=== PATIENT | female | born 1950 | race African-American/Black ===

== ENCOUNTER 2021-04-10 12:37 | Inpatient (IN) | payer MEDICARE, MEDICAID ==
[~2021-04-10] VITALS: Ht 165.1 cm; Wt 122.6 kg
[2021-04-10] MEDS ORDERED: SODIUM CHLORIDE 0.9% 1000ML BAG (SEPSIS BOLUS) IV ONE (13:30)
[2021-04-10 14:26] LABS: BASOPHILS % 0.5 % (0.0-2.0); HEMATOCRIT. 36.2 % (36.0-48.0); HEMOGLOBIN. 11.7 g/dL (12.0-16.0); LYMPHOCYTES % 12.1 % (20.0-50.0); MEAN CORPUSCULAR HEMOGLOBIN 25.6 pg (28.0-32.0); MEAN CORPUSCULAR VOLUME 79.3 fL (81.0-99.0); MEAN PLATELET VOLUME 9.5 fl (7.4-10.4); MONOCYTES % 7.7 % (2.0-8.0); NEUTROPHILS % 79.7 % (40.0-76.0); PLATELET 136 x1000/uL (130-400); RED BLOOD CELL COUNT 4.57 mill/uL (4.2-5.4); RED CELL DISTRIBUTION WIDTH 15.3 % (11.6-14.6)
[2021-04-10 14:50] LABS: D-DIMER 0.93 mg/L FEU (<0.50); INR 1.1; PARTIAL THROMBOPLASTIN TIME 32.5 sec (23.4-31.0); PROTHROMBIN TIME 11.3 sec (9.6-11.0)
[2021-04-10] MEDS ORDERED: VANCOMYCIN 1 G PREMIX 200 ML IV SCH (15:00)
[2021-04-10] MEDS ORDERED: DEXAMETHASONE 4MG/ML 1ML VIAL IV SCH (15:00)
[2021-04-10] MEDS ORDERED: PIPERACILLIN/TAZ 3.375G PREMIX 50 ML IV SCH (15:00)
[2021-04-10] MEDS ORDERED: PIPERACILLIN/TAZOBACTAM 3.375GM/50ML PREMIX IV ONE (15:00)
[2021-04-10] MEDS ORDERED: ONDANSETRON HCL 4MG/2ML INJ IV PRN (15:45)
[2021-04-10] MEDS ORDERED: CLONIDINE 0.1MG TABLET PO PRN (15:45)
[2021-04-10] MEDS ORDERED: CEFTRIAXONE 1 G PREMIX 50 ML IV SCH (15:45)
[2021-04-10] MEDS ORDERED: POTASSIUM CHLORIDE 20MEQ TABLET SR PO SCH (15:45)
[2021-04-10] MEDS ORDERED: KCL 20MEQ/100ML PREMIX 100 ML IV SCH (16:00)
[2021-04-10] MEDS ORDERED: AZITHROMYCIN 500 MG in DEXT 5% WATER 250 ML IV SCH (16:30)
[2021-04-10] MEDS: CLOPIDOGREL 75MG TABLET PO SCH (17:05)
[2021-04-10] MEDS: ASPIRIN 81MG TABLET PO SCH (17:15)
[2021-04-10] MEDS: ENOXAPARIN 30MG/0.3ML SYR SUBCUT SCH (18:59)
[2021-04-10 22:30] VITALS: BP 134/61
[2021-04-10] MEDS ORDERED: AMLO5TAB88 PO (23:54)
[2021-04-10] MEDS ORDERED: TC1C15 TP (23:54)
[2021-04-10] MEDS ORDERED: BENA20TA10 PO (23:54)
[2021-04-10] MEDS ORDERED: METO-385 PO (23:54)
[2021-04-10] MEDS ORDERED: CLOP75TA33 PO (23:54)
[2021-04-10] MEDS ORDERED: LATA2.5D14 (23:54)
[2021-04-10] MEDS ORDERED: ASPI-1497 PO (23:54)
[2021-04-10] MEDS ORDERED: FURO20TA4 PO (23:54)
[2021-04-10] MEDS ORDERED: IBUP-2030 PO (23:54)
[2021-04-11] VITALS: BP 117/61
[2021-04-11 00:46] LABS: CREATINE KINASE MB FRACTION 10.5 ng/mL (0.5-3.6)
[2021-04-11 04:00] VITALS: BP_SYST 137; BP_SYST 147; BP_DIAS 69; BP_DIAS 78
[2021-04-11] MEDS: ENOXAPARIN 30MG/0.3ML SYR SUBCUT SCH ×2 (05:10→17:01)
[2021-04-11 05:50] LABS: CHLORIDE 108 mEq/L (98-107)
[2021-04-11 06:02] LABS: CREATINE KINASE MB FRACTION 9.9 ng/mL (0.5-3.6); LDL CHOLESTEROL 44 mg/dL (5-100)
[2021-04-11 06:04] LABS: HDL CHOLESTEROL 75 mg/dL (40-59)
[2021-04-11 06:12] LABS: BASOPHILS % 0.2 % (0.0-2.0); EOSINOPHILS % 0.1 % (0.0-5.0); HEMATOCRIT. 34.2 % (36.0-48.0); HEMOGLOBIN. 11.2 g/dL (12.0-16.0); LYMPHOCYTES % 14.3 % (20.0-50.0); MEAN CORPUSCULAR HEMOGLOBIN 26.2 pg (28.0-32.0); MEAN CORPUSCULAR VOLUME 80.1 fL (81.0-99.0); MEAN PLATELET VOLUME 9.5 fl (7.4-10.4); NEUTROPHILS % 76.4 % (40.0-76.0); PLATELET 128 x1000/uL (130-400); RED BLOOD CELL COUNT 4.27 mill/uL (4.2-5.4); RED CELL DISTRIBUTION WIDTH 15.8 % (11.6-14.6)
[2021-04-11 06:14] LABS: CREATINE KINASE 1109 IU/L (26-192)
[2021-04-11 08:00] VITALS: BP 104/60
[2021-04-11] MEDS: CLOPIDOGREL 75MG TABLET PO SCH (08:33)
[2021-04-11] MEDS: ASPIRIN 81MG TABLET PO SCH (08:33)
[2021-04-11] MEDS: DEXAMETHASONE 10 MG/ML VIAL IV SCH (08:33)
[2021-04-11] MEDS ORDERED: FUROSEMIDE 40MG/4ML VIAL IVP SCH (09:00)
[2021-04-11] MEDS ORDERED: POTASSIUM CHLORIDE 20MEQ TABLET SR PO NR (09:15)
[2021-04-11] MEDS: ACETAMINOPHEN 325MG TABLET PO PRN (10:05)
[2021-04-11 12:00] VITALS: BP 111/59
[2021-04-11] MEDS: CEFTRIAXONE 1,000 MG in DEXTROSE 5% WATER 50 ML IV SCH (13:59)
[2021-04-11] MEDS: AZITHROMYCIN 500 MG in DEXT 5% WATER 250 ML IV SCH (15:04)
[2021-04-11 16:00] VITALS: BP 108/61
[2021-04-11 20:00] VITALS: BP 98/62
[2021-04-11] MEDS: DIPHENHYDRAMINE 50MG/ML VIAL IV PRN (23:42)
[2021-04-12] VITALS: BP_SYST 121; BP_SYST 125; BP_DIAS 68; BP_DIAS 70
[2021-04-12 00:58] LABS: CREATINE KINASE MB FRACTION 3.7 ng/mL (0.5-3.6)
[2021-04-12] MEDS: ACETAMINOPHEN 325MG TABLET PO PRN ×2 (01:36→17:11)
[2021-04-12 04:00] VITALS: BP 107/61
[2021-04-12] MEDS: ENOXAPARIN 30MG/0.3ML SYR SUBCUT SCH ×2 (05:35→17:11)
[2021-04-12 07:07] LABS: BASOPHILS % 0.3 % (0.0-2.0); HEMATOCRIT. 37.2 % (36.0-48.0); HEMOGLOBIN. 11.8 g/dL (12.0-16.0); LYMPHOCYTES % 20.4 % (20.0-50.0); MEAN CORPUSCULAR HEMOGLOBIN 25.5 pg (28.0-32.0); MEAN CORPUSCULAR VOLUME 80.7 fL (81.0-99.0); MEAN PLATELET VOLUME 9.8 fl (7.4-10.4); NEUTROPHILS % 70.3 % (40.0-76.0); PLATELET 141 x1000/uL (130-400); RED BLOOD CELL COUNT 4.61 mill/uL (4.2-5.4); RED CELL DISTRIBUTION WIDTH 16.2 % (11.6-14.6)
[2021-04-12 08:00] VITALS: BP 103/59
[2021-04-12 08:40] LABS: CHLORIDE 109 mEq/L (98-107)
[2021-04-12] MEDS: CLOPIDOGREL 75MG TABLET PO SCH (09:19)
[2021-04-12] MEDS: ASPIRIN 81MG TABLET PO SCH (09:19)
[2021-04-12] MEDS: DEXAMETHASONE 10 MG/ML VIAL IV SCH (11:29)
[2021-04-12 12:00] VITALS: BP 114/68
[2021-04-12 12:39] LABS: CLARITY URINE CLEAR (CLEAR); COLOR URINE YELLOW (YELLOW); KETONES URINE NEGATIVE (NEGATIVE); LEUKOCYTE ESTERASE URINE NEGATIVE (NEGATIVE); NITRITE URINE NEGATIVE (NEGATIVE); OCCULT BLOOD URINE NEGATIVE (NEGATIVE); PROTEIN URINE TRACE (NEGATIVE); SPECIFIC GRAVITY URINE 1.008 (1.005-1.030); UROBILINOGEN URINE 0.2 E.U./dL (0.2-1.0)
[2021-04-12] MEDS: CEFTRIAXONE 1,000 MG in DEXTROSE 5% WATER 50 ML IV SCH (15:25)
[2021-04-12] MEDS: AZITHROMYCIN 500 MG in DEXT 5% WATER 250 ML IV SCH (15:26)
[2021-04-12 16:00] VITALS: BP 170/93
[2021-04-12 20:00] VITALS: BP 114/69
[2021-04-12] MEDS: METOPROLOL TARTRATE 25MG TABLET PO SCH (20:48)
[2021-04-13] VITALS: BP 133/77
[2021-04-13 04:00] VITALS: BP 132/82
[2021-04-13] MEDS: ENOXAPARIN 30MG/0.3ML SYR SUBCUT SCH ×2 (05:27→17:56)
[2021-04-13 07:47] LABS: BASOPHILS % 0.1 % (0.0-2.0); HEMATOCRIT. 37.2 % (36.0-48.0); HEMOGLOBIN. 11.7 g/dL (12.0-16.0); MEAN CORPUSCULAR HEMOGLOBIN 25.4 pg (28.0-32.0); MEAN CORPUSCULAR VOLUME 80.5 fL (81.0-99.0); MEAN PLATELET VOLUME 9.8 fl (7.4-10.4); MONOCYTES % 8.8 % (2.0-8.0); NEUTROPHILS % 74.1 % (40.0-76.0); PLATELET 133 x1000/uL (130-400); RED BLOOD CELL COUNT 4.62 mill/uL (4.2-5.4)
[2021-04-13 08:00] VITALS: BP 123/73
[2021-04-13 08:04] LABS: CHLORIDE 107 mEq/L (98-107)
[2021-04-13] MEDS: ASPIRIN 81MG TABLET PO SCH (08:16)
[2021-04-13] MEDS: DEXAMETHASONE 10 MG/ML VIAL IV SCH (08:17)
[2021-04-13] MEDS: CLOPIDOGREL 75MG TABLET PO SCH (08:17)
[2021-04-13] MEDS: ACETAMINOPHEN 325MG TABLET PO PRN (08:17)
[2021-04-13] MEDS: DIPHENHYDRAMINE 50MG/ML VIAL IV PRN (08:17)
[2021-04-13] MEDS: FUROSEMIDE 20MG/2ML VIAL IVP SCH (08:17)
[2021-04-13] MEDS: METOPROLOL TARTRATE 25MG TABLET PO SCH ×2 (08:19→20:33)
[2021-04-13 12:00] VITALS: BP 125/79
[2021-04-13] MEDS: CEFTRIAXONE 1,000 MG in DEXTROSE 5% WATER 50 ML IV SCH (15:11)
[2021-04-13] MEDS: AZITHROMYCIN 500 MG in DEXT 5% WATER 250 ML IV SCH (15:11)
[2021-04-13 16:00] VITALS: BP 107/93
[2021-04-13 20:00] VITALS: BP 112/67
[2021-04-13] MEDS: GUAIFENESIN 600MG ER TABLET PO SCH (20:33)
[2021-04-14] VITALS: BP 119/72
[2021-04-14 04:00] VITALS: BP 134/98
[2021-04-14] MEDS: ENOXAPARIN 30MG/0.3ML SYR SUBCUT SCH ×2 (05:46→17:01)
[2021-04-14 07:00] LABS: BASOPHILS % 0.2 % (0.0-2.0); HEMATOCRIT. 37.3 % (36.0-48.0); HEMOGLOBIN. 11.8 g/dL (12.0-16.0); LYMPHOCYTES % 22.7 % (20.0-50.0); MEAN CORPUSCULAR HEMOGLOBIN 25.5 pg (28.0-32.0); MEAN CORPUSCULAR VOLUME 80.7 fL (81.0-99.0); MEAN PLATELET VOLUME 9.7 fl (7.4-10.4); MONOCYTES % 12.5 % (2.0-8.0); NEUTROPHILS % 64.6 % (40.0-76.0); PLATELET 155 x1000/uL (130-400); RED BLOOD CELL COUNT 4.63 mill/uL (4.2-5.4); RED CELL DISTRIBUTION WIDTH 15.8 % (11.6-14.6)
[2021-04-14 07:01] LABS: CHLORIDE 106 mEq/L (98-107)
[2021-04-14 08:00] VITALS: BP 119/72
[2021-04-14] MEDS: ACETAMINOPHEN 325MG TABLET PO PRN (08:43)
[2021-04-14] MEDS: FUROSEMIDE 20MG/2ML VIAL IVP SCH (08:43)
[2021-04-14] MEDS: GUAIFENESIN 600MG ER TABLET PO SCH ×2 (08:43→22:18)
[2021-04-14] MEDS: DIPHENHYDRAMINE 50MG/ML VIAL IV PRN (08:43)
[2021-04-14] MEDS: DEXAMETHASONE 10 MG/ML VIAL IV SCH (08:44)
[2021-04-14] MEDS: METOPROLOL TARTRATE 25MG TABLET PO SCH ×2 (08:44→22:19)
[2021-04-14] MEDS: CLOPIDOGREL 75MG TABLET PO SCH (08:44)
[2021-04-14] MEDS: ASPIRIN 81MG TABLET PO SCH (08:44)
[2021-04-14] MEDS ORDERED: AZITHROMYCIN 500 MG TABLET PO SCH (09:00)
[2021-04-14 12:00] VITALS: BP 117/67
[2021-04-14] MEDS: CEFTRIAXONE 1,000 MG in DEXTROSE 5% WATER 50 ML IV SCH (14:03)
[2021-04-14 16:00] VITALS: BP 116/69
[2021-04-14] MEDS: AZITHROMYCIN 500 MG in DEXT 5% WATER 250 ML IV SCH (17:00)
[2021-04-14 20:00] VITALS: BP 130/80
[2021-04-15] VITALS: BP 130/82
[2021-04-15 04:00] VITALS: BP 119/73
[2021-04-15] MEDS: ENOXAPARIN 30MG/0.3ML SYR SUBCUT SCH ×2 (06:44→17:03)
[2021-04-15 08:00] VITALS: BP 106/67
[2021-04-15] MEDS: ASPIRIN 81MG TABLET PO SCH (08:58)
[2021-04-15] MEDS: DEXAMETHASONE 10 MG/ML VIAL IV SCH (08:58)
[2021-04-15] MEDS: GUAIFENESIN 600MG ER TABLET PO SCH ×2 (08:58→21:05)
[2021-04-15 08:59] LABS: HEMATOCRIT. 37.1 % (36.0-48.0); HEMOGLOBIN. 11.8 g/dL (12.0-16.0); MEAN CORPUSCULAR HEMOGLOBIN 25.6 pg (28.0-32.0); MEAN CORPUSCULAR VOLUME 80.2 fL (81.0-99.0); MEAN PLATELET VOLUME 9.8 fl (7.4-10.4); PLATELET 224 x1000/uL (130-400); RED BLOOD CELL COUNT 4.62 mill/uL (4.2-5.4); RED CELL DISTRIBUTION WIDTH 16.1 % (11.6-14.6)
[2021-04-15] MEDS: METOPROLOL TARTRATE 25MG TABLET PO SCH ×2 (09:00→21:06)
[2021-04-15 09:02] LABS: CHLORIDE 106 mEq/L (98-107)
[2021-04-15] MEDS: CLOPIDOGREL 75MG TABLET PO SCH (09:02)
[2021-04-15] MEDS: FUROSEMIDE 20MG/2ML VIAL IVP SCH (09:03)
[2021-04-15 12:00] VITALS: BP 117/72
[2021-04-15] MEDS: CEFTRIAXONE 1,000 MG in DEXTROSE 5% WATER 50 ML IV SCH (14:55)
[2021-04-15 16:00] VITALS: BP 114/72
[2021-04-15 20:00] VITALS: BP 112/69
[2021-04-15 21:38] LABS: PLATELET ESTIMATE NORMAL
[2021-04-16] VITALS (7 sets, daily range): BP systolic 90–154; BP diastolic 58–89
[2021-04-16 06:39] LABS: HEMATOCRIT. 37.7 % (36.0-48.0); HEMOGLOBIN. 11.7 g/dL (12.0-16.0); MEAN CORPUSCULAR VOLUME 80.5 fL (81.0-99.0); MEAN PLATELET VOLUME 9.5 fl (7.4-10.4); PLATELET 253 x1000/uL (130-400); RED BLOOD CELL COUNT 4.68 mill/uL (4.2-5.4); RED CELL DISTRIBUTION WIDTH 15.8 % (11.6-14.6)
[2021-04-16] MEDS: ENOXAPARIN 30MG/0.3ML SYR SUBCUT SCH ×2 (07:06→17:12)
[2021-04-16 07:29] LABS: CHLORIDE 103 mEq/L (98-107)
[2021-04-16] MEDS: METOPROLOL TARTRATE 25MG TABLET PO SCH ×2 (08:25→20:44)
[2021-04-16] MEDS: ASPIRIN 81MG TABLET PO SCH (08:36)
[2021-04-16] MEDS: CLOPIDOGREL 75MG TABLET PO SCH (08:36)
[2021-04-16] MEDS: GUAIFENESIN 600MG ER TABLET PO SCH ×2 (08:36→20:44)
[2021-04-16] MEDS: DEXAMETHASONE 10 MG/ML VIAL IV SCH (08:37)
[2021-04-16] MEDS: FUROSEMIDE 20MG/2ML VIAL IVP SCH (10:38)
[2021-04-16 17:55] LABS: PLATELET ESTIMATE NORMAL
[2021-04-16] MEDS ORDERED: ALBUTEROL 6.7GM HFA INHALER ORI PRN (20:15)
[2021-04-17 00:36] VITALS: BP 106/66
[2021-04-17 04:00] VITALS: BP 110/64
[2021-04-17] MEDS: ENOXAPARIN 30MG/0.3ML SYR SUBCUT SCH ×2 (06:18→17:01)
[2021-04-17 08:00] VITALS: BP 111/70
[2021-04-17] MEDS: FUROSEMIDE 20MG/2ML VIAL IVP SCH (08:13)
[2021-04-17] MEDS: GUAIFENESIN 600MG ER TABLET PO SCH ×2 (08:13→23:06)
[2021-04-17] MEDS: DEXAMETHASONE 10 MG/ML VIAL IV SCH (08:13)
[2021-04-17] MEDS: ASPIRIN 81MG TABLET PO SCH (08:13)
[2021-04-17] MEDS: CLOPIDOGREL 75MG TABLET PO SCH (08:13)
[2021-04-17] MEDS: METOPROLOL TARTRATE 25MG TABLET PO SCH ×2 (08:14→20:48)
[2021-04-17 10:37] LABS: BG CARBOXYHEMOGLOBIN 0.4 % (0.5-1.5); BG DEOXYHEMOGLOBIN 23.1 % (0.0-5.0); BG FRACTION INSPIRED OXYGEN 21; BG HCO3 ACT 34.9 mmol/L (22.0-26.0); BG METHEMOGLOBIN 0.2 % (0.0-1.5); BG OXYGEN SATURATION 76.8 % (92.0-98.5); BG OXYHEMOGLOBIN 76.3 % (94.0-97.0); BG PCO2 53.5 mmHg (35.0-45.0); BG PH 7.432 (7.350-7.450); BG PO2 41.8 mmHg (75.0-100.0); BG SAMPLE SITE RIGHT RADIAL; BG TOTAL HEMOGLOBIN 12.5 g/dL (12.0-18.0); BG VENT MODE ROOM AIR
[2021-04-17 12:00] VITALS: BP 103/65
[2021-04-17 16:00] VITALS: BP 119/71
[2021-04-17 20:53] VITALS: BP 108/54
[2021-04-18] VITALS: BP 110/66
[2021-04-18 04:00] VITALS: BP 120/63
[2021-04-18] MEDS: ENOXAPARIN 30MG/0.3ML SYR SUBCUT SCH (06:53)
[2021-04-18] MEDS: DEXAMETHASONE 10 MG/ML VIAL IV SCH (09:35)
[2021-04-18] MEDS: FUROSEMIDE 20MG/2ML VIAL IVP SCH (09:35)
[2021-04-18] MEDS: METOPROLOL TARTRATE 25MG TABLET PO SCH (09:36)
[2021-04-18] MEDS: ASPIRIN 81MG TABLET PO SCH (09:36)
[2021-04-18] MEDS: CLOPIDOGREL 75MG TABLET PO SCH (09:36)
[2021-04-18] MEDS: GUAIFENESIN 600MG ER TABLET PO SCH (09:36)
[2021-04-18 12:00] VITALS: BP 151/85
[2021-04-18] MEDS ORDERED: DEXA6TAB MT (15:58)
[2021-04-18] MEDS ORDERED: PANT40TA51 MT (15:58)
[2021-04-18 16:00] VITALS: BP 129/69
[2021-04-18 16:11] VITALS: BP 151/85
== END 2021-04-18 18:30 | disposition home health service (06) | DRG 720 ==
LOC: ER 12:50 → MICUSO 15:00 → EDBEDREQ 15:28 → EDBEDREQTM 15:28 → EDBEDREQSVC 15:28 → 7WST 22:10
PROVIDERS: ADMIT Internal Medicine; ATTEND Internal Medicine
DX: A41.89 Other specified sepsis (principal); J96.01 Acute respiratory failure with hypoxia; J12.82 Pneumonia due to coronavirus disease 2019; I21.4 Non-ST elevation (NSTEMI) myocardial infarction; J15.9 Unspecified bacterial pneumonia; M62.82 Rhabdomyolysis; I95.9 Hypotension, unspecified; Z96.652 Presence of left artificial knee joint; D64.9 Anemia, unspecified; E66.01 Morbid (severe) obesity due to excess calories; I11.9 Hypertensive heart disease without heart failure; E87.6 Hypokalemia; J45.909 Unspecified asthma, uncomplicated; U07.1 COVID-19; W18.30XA Fall on same level, unspecified, initial encounter; Z87.891 Personal history of nicotine dependence; Z91.14 Patient's other noncompliance with medication regimen; Z68.41 Body mass index [BMI] 40.0-44.9, adult; Z79.02 Long term (current) use of antithrombotics/antiplatelets; Z79.82 Long term (current) use of aspirin; Z99.81 Dependence on supplemental oxygen; Y93.89 Activity, other specified; Y92.89 Other specified places as the place of occurrence of the external cause; Y99.8 Other external cause status; Z86.79 Personal history of other diseases of the circulatory system
CPT/HCPCS: 36415; 36600; 71045; 80048; 80053; 80061; 80076; 81003; 82270; 82375; 82550; 82553; 82728; 82805; 83605; 83615; 83735; 83880; 84145; 84443; 84484; 85025; 85379; 86141; 93005; 93880; 93970; 99291; C1893; J0456; J0696; J1100; J1200; J1650; J1940; J2543; J3370; J3480; J7030; J7040; J7060; U0003; U0005

== ENCOUNTER 2022-10-10 12:07 | Inpatient (IN) | payer MEDICARE, MEDICAID ==
[~2022-10-10] VITALS: Ht 170.2 cm; Wt 132.6 kg
[~2022-10-10 12:07] MED LIST: ASPI-1497 PO; BENA-8 PO; CLOP75TA33 PO; DEXA6TAB MT; FURO20TA4 PO; LATA2.5D14; METO-385 PO; PANT40TA51 MT; TC1C15 TP
[2022-10-10 13:12] LABS: HEMATOCRIT. 40.6 % (36.0-48.0); HEMOGLOBIN. 13.1 g/dL (12.0-16.0); MEAN CORPUSCULAR HEMOGLOBIN 27.4 pg (28.0-32.0); MEAN CORPUSCULAR VOLUME 84.8 fL (81.0-99.0); MEAN PLATELET VOLUME 10.3 fl (7.4-10.4); PLATELET 139 x1000/uL (130-400); RED BLOOD CELL COUNT 4.78 mill/uL (4.2-5.4); RED CELL DISTRIBUTION WIDTH 18.5 % (11.6-14.6)
[2022-10-10 13:34] LABS: CHLORIDE 101 mEq/L (98-107)
[2022-10-10 13:38] LABS: PLATELET ESTIMATE NORMAL
[2022-10-10] MEDS: FUROSEMIDE 20MG/2ML VIAL IVP NR (14:11)
[2022-10-10 18:00] VITALS: BP 100/47
[2022-10-10 18:14] VITALS: BP 108/57
[2022-10-10] MEDS ORDERED: PNEUMOCOCCAL 23-VAL P-SAC VAC 0.5 ML IM ONE (19:00)
[2022-10-10] MEDS ORDERED: INFLUENZA VACCINE 05/PF 0.5 ML SYRINGE IM ONE (19:00)
[2022-10-10 20:00] VITALS: BP 95/51
[2022-10-10] MEDS ORDERED: FURO40TA5 MT (20:51)
[2022-10-10] MEDS ORDERED: FERR324T4 MT (20:51)
[2022-10-10] MEDS ORDERED: ALBU6.7H3 INH (20:51)
[2022-10-10] MEDS ORDERED: AMLO5TAB88 MT (20:51)
[2022-10-10] MEDS ORDERED: ALBUTEROL (0.5%) 2.5MG/0.5ML NEB HHN ONE (22:30)
[2022-10-10] MEDS: HEPARIN 5000 UNITS/ML VIAL SUBCUT SCH (22:53)
[2022-10-11] VITALS: BP 101/49
[2022-10-11 04:00] VITALS: BP 103/43
[2022-10-11 05:05] LABS: CLARITY URINE TURBID (CLEAR); COLOR URINE DARK YELLOW (YELLOW); KETONES URINE TRACE (NEGATIVE); LEUKOCYTE ESTERASE URINE TRACE (NEGATIVE); NITRITE URINE NEGATIVE (NEGATIVE); OCCULT BLOOD URINE TRACE (NEGATIVE); PROTEIN URINE 2+ (NEGATIVE)
[2022-10-11 05:27] LABS: *AMPHETAMINES SCREEN URINE NEGATIVE (NEGATIVE); *BARBITURATES SCREEN URINE NEGATIVE (NEGATIVE); *BENZODIAZEPINES SCREEN URINE NEGATIVE (NEGATIVE); *COCAINE SCREEN URINE NEGATIVE (NEGATIVE); CANNABINOID URINE SCREEN NEGATIVE (NEGATIVE); METHADONE URINE SCREEN NEGATIVE (NEGATIVE); OPIATES URINE SCREEN NEGATIVE (NEGATIVE); PHENCYCLIDINE URINE SCREEN NEGATIVE (NEGATIVE)
[2022-10-11] MEDS ORDERED: LIDOCAINE HCL/PF 1% 2ML VIAL ONE (07:28)
[2022-10-11 08:00] VITALS: BP 117/60
[2022-10-11 08:48] LABS: HEMATOCRIT. 40.4 % (36.0-48.0); HEMOGLOBIN. 12.8 g/dL (12.0-16.0); MEAN CORPUSCULAR HEMOGLOBIN 26.8 pg (28.0-32.0); MEAN CORPUSCULAR VOLUME 84.7 fL (81.0-99.0); MEAN PLATELET VOLUME 10.1 fl (7.4-10.4); PLATELET 127 x1000/uL (130-400); RED BLOOD CELL COUNT 4.77 mill/uL (4.2-5.4); RED CELL DISTRIBUTION WIDTH 18.7 % (11.6-14.6)
[2022-10-11] MEDS ORDERED: BENAZEPRIL 10MG TABLET PO SCH (09:00)
[2022-10-11] MEDS ORDERED: AMLODIPINE 5MG TABLET PO SCH (09:00)
[2022-10-11] MEDS ORDERED: METOPROLOL SUCCINATE 50MG ER TABLET PO SCH (09:00)
[2022-10-11] MEDS ORDERED: FUROSEMIDE 20MG/2ML VIAL IVP SCH (09:00)
[2022-10-11 10:17] LABS: NUCLEATED RED BLOOD CELLS 1 /100 WBC; PLATELET ESTIMATE SLIGHTLY DECREASED
[2022-10-11] MEDS: CLOPIDOGREL 75MG TABLET PO SCH (10:23)
[2022-10-11] MEDS: HEPARIN 5000 UNITS/ML VIAL SUBCUT SCH ×2 (10:23→20:56)
[2022-10-11] MEDS: FERROUS SULFATE 325MG TABLET PO SCH ×3 (10:24→17:35)
[2022-10-11] MEDS ORDERED: FUROSEMIDE 40MG/4ML VIAL IVP NR (11:45)
[2022-10-11 11:55] LABS: BG BASE EXCESS 1.8 mmol/L (-2.0-2.0); BG CARBOXYHEMOGLOBIN 1.3 % (0.5-1.5); BG DEOXYHEMOGLOBIN 6.1 % (0.0-5.0); BG HCO3 ACT 31.6 mmol/L (22.0-26.0); BG METHEMOGLOBIN 0.3 % (0.0-1.5); BG OXYGEN SATURATION 93.8 % (92.0-98.5); BG OXYHEMOGLOBIN 92.3 % (94.0-97.0); BG PCO2 77.2 mmHg (35.0-45.0); BG PO2 75.4 mmHg (75.0-100.0); BG SAMPLE SITE RIGHT BRACHIAL; BG TOTAL HEMOGLOBIN 13.5 g/dL (12.0-18.0); BG VENT MODE NASAL CANNULA
[2022-10-11 12:00] VITALS: BP 112/55
[2022-10-11] MEDS ORDERED: SODIUM CHLORIDE 0.9% 1,000 ML IV SCH (12:00)
[2022-10-11] MEDS ORDERED: ALBUTEROL (0.083%) 2.5MG/3ML NEB HHN PRN (12:45)
[2022-10-11] MEDS ORDERED: IPRATROPIUM/ALBUTEROL 0.5-3(2.5)MG/3ML NEB HHN PRN (12:45)
[2022-10-11] MEDS ORDERED: IPRATROPIUM BROMIDE (0.02%) 0.5MG/2.5ML NEB HHN PRN (12:45)
[2022-10-11 15:12] LABS: BG BASE EXCESS 0.5 mmol/L (-2.0-2.0); BG CARBOXYHEMOGLOBIN 1.3 % (0.5-1.5); BG DEOXYHEMOGLOBIN 20.6 % (0.0-5.0); BG HCO3 ACT 30.7 mmol/L (22.0-26.0); BG METHEMOGLOBIN 0.3 % (0.0-1.5); BG OXYGEN SATURATION 79.1 % (92.0-98.5); BG OXYHEMOGLOBIN 77.8 % (94.0-97.0); BG PCO2 78.6 mmHg (35.0-45.0); BG PH 7.209 (7.350-7.450); BG PO2 47.7 mmHg (75.0-100.0); BG SAMPLE SITE RIGHT BRACHIAL; BG TOTAL HEMOGLOBIN 13.6 g/dL (12.0-18.0); BG VENT MODE NASAL CANNULA
[2022-10-11 16:00] VITALS: BP 106/44
[2022-10-11 17:31] LABS: CREATINE KINASE 43 IU/L (26-192)
[2022-10-11] MEDS ORDERED: IPRATROPIUM/ALBUTEROL 0.5-3(2.5)MG/3ML NEB HHN SCH (18:00)
[2022-10-11 20:00] VITALS: BP 123/57
[2022-10-11 20:01] LABS: BG CARBOXYHEMOGLOBIN 1.2 % (0.5-1.5); BG DEOXYHEMOGLOBIN 6.8 % (0.0-5.0); BG FRACTION INSPIRED OXYGEN 30; BG HCO3 ACT 30.7 mmol/L (22.0-26.0); BG METHEMOGLOBIN 0.3 % (0.0-1.5); BG OXYGEN SATURATION 93.1 % (92.0-98.5); BG OXYHEMOGLOBIN 91.7 % (94.0-97.0); BG PCO2 67.7 mmHg (35.0-45.0); BG PH 7.274 (7.350-7.450); BG PO2 69.3 mmHg (75.0-100.0); BG SAMPLE SITE LEFT BRACHIAL; BG TOTAL HEMOGLOBIN 13.4 g/dL (12.0-18.0); BG VENT MODE MASK - BIPAP
[2022-10-11] MEDS: ATORVASTATIN CALCIUM 20MG TABLET PO SCH (20:56)
[2022-10-11] MEDS: IPRATROPIUM BROMIDE (0.02%) 0.5MG/2.5ML NEB HHN SCH (21:33)
[2022-10-11] MEDS: BUDESONIDE 0.5MG/2ML NEB HHN SCH (21:33)
[2022-10-11] MEDS: ALBUTEROL (0.083%) 2.5MG/3ML NEB HHN SCH (21:34)
[2022-10-12] VITALS: BP 122/52
[2022-10-12] MEDS: ALBUTEROL (0.083%) 2.5MG/3ML NEB HHN SCH ×4 (03:36→21:35)
[2022-10-12] MEDS: IPRATROPIUM BROMIDE (0.02%) 0.5MG/2.5ML NEB HHN SCH ×4 (03:36→21:26)
[2022-10-12 04:00] VITALS: BP 134/62
[2022-10-12 04:52] LABS: BG BASE EXCESS 2.1 mmol/L (-2.0-2.0); BG CARBOXYHEMOGLOBIN 1.2 % (0.5-1.5); BG DEOXYHEMOGLOBIN 8.9 % (0.0-5.0); BG FRACTION INSPIRED OXYGEN 30; BG HCO3 ACT 29.2 mmol/L (22.0-26.0); BG METHEMOGLOBIN 0.2 % (0.0-1.5); BG OXYHEMOGLOBIN 89.7 % (94.0-97.0); BG PCO2 56.9 mmHg (35.0-45.0); BG PH 7.328 (7.350-7.450); BG PO2 60.6 mmHg (75.0-100.0); BG SAMPLE SITE LEFT BRACHIAL; BG TOTAL HEMOGLOBIN 12.6 g/dL (12.0-18.0); BG TOTAL RESPIRATORY RATE 20 b/min; BG VENT MODE MASK - BIPAP
[2022-10-12 08:00] VITALS: BP 123/70
[2022-10-12 08:00] LABS: HEMATOCRIT. 38.1 % (36.0-48.0); HEMOGLOBIN. 12.1 g/dL (12.0-16.0); MEAN CORPUSCULAR HEMOGLOBIN 26.6 pg (28.0-32.0); MEAN CORPUSCULAR VOLUME 83.5 fL (81.0-99.0); MEAN PLATELET VOLUME 9.5 fl (7.4-10.4); PLATELET 124 x1000/uL (130-400); RED BLOOD CELL COUNT 4.57 mill/uL (4.2-5.4); RED CELL DISTRIBUTION WIDTH 18.2 % (11.6-14.6)
[2022-10-12] MEDS: BUDESONIDE 0.5MG/2ML NEB HHN SCH ×2 (08:52→21:25)
[2022-10-12 09:38] LABS: PLATELET ESTIMATE SLIGHTLY DECREASED
[2022-10-12] MEDS: FERROUS SULFATE 325MG TABLET PO SCH ×2 (10:02→16:43)
[2022-10-12] MEDS: CLOPIDOGREL 75MG TABLET PO SCH (10:02)
[2022-10-12] MEDS: HEPARIN 5000 UNITS/ML VIAL SUBCUT SCH ×2 (10:02→20:37)
[2022-10-12 12:00] VITALS: BP 126/68
[2022-10-12 16:00] VITALS: BP 139/59
[2022-10-12] MEDS ORDERED: MENTHOL/LANOLIN/CALAMINE/ZN OX OINT 71GM TOP PRN (16:00)
[2022-10-12] MEDS: SILDENAFIL CITRATE 20MG TABLET PO SCH ×2 (16:43→23:40)
[2022-10-12 20:00] VITALS: BP 120/57
[2022-10-12] MEDS: ATORVASTATIN CALCIUM 20MG TABLET PO SCH (20:37)
[2022-10-13] VITALS: BP 109/42
[2022-10-13] MEDS: ALBUTEROL (0.083%) 2.5MG/3ML NEB HHN SCH ×4 (02:27→21:54)
[2022-10-13] MEDS: IPRATROPIUM BROMIDE (0.02%) 0.5MG/2.5ML NEB HHN SCH ×4 (02:27→21:54)
[2022-10-13 04:00] VITALS: BP 126/57
[2022-10-13] MEDS: SILDENAFIL CITRATE 20MG TABLET PO SCH ×3 (05:57→22:37)
[2022-10-13 08:00] VITALS: BP 108/52
[2022-10-13] MEDS: BUDESONIDE 0.5MG/2ML NEB HHN SCH ×2 (09:06→21:54)
[2022-10-13] MEDS: HEPARIN 5000 UNITS/ML VIAL SUBCUT SCH ×2 (09:41→22:38)
[2022-10-13] MEDS: CLOPIDOGREL 75MG TABLET PO SCH (09:41)
[2022-10-13 11:57] VITALS: BP 122/57
[2022-10-13] MEDS ORDERED: FUROSEMIDE 40MG/4ML VIAL IVP NR (13:15)
[2022-10-13 16:00] VITALS: BP 101/59
[2022-10-13 20:32] VITALS: BP 123/49
[2022-10-13] MEDS: ATORVASTATIN CALCIUM 20MG TABLET PO SCH (22:37)
[2022-10-14] VITALS: BP 135/63
[2022-10-14] MEDS: ALBUTEROL (0.083%) 2.5MG/3ML NEB HHN SCH ×4 (03:11→20:17)
[2022-10-14] MEDS: IPRATROPIUM BROMIDE (0.02%) 0.5MG/2.5ML NEB HHN SCH ×4 (03:11→20:17)
[2022-10-14 04:00] VITALS: BP 124/58
[2022-10-14 05:43] LABS: HEMATOCRIT. 37.3 % (36.0-48.0); HEMOGLOBIN. 12.2 g/dL (12.0-16.0); MEAN CORPUSCULAR HEMOGLOBIN 27.1 pg (28.0-32.0); MEAN PLATELET VOLUME 9.3 fl (7.4-10.4); PLATELET 134 x1000/uL (130-400)
[2022-10-14] MEDS: SILDENAFIL CITRATE 20MG TABLET PO SCH ×3 (06:18→21:36)
[2022-10-14 08:00] VITALS: BP 143/63
[2022-10-14] MEDS: FERROUS SULFATE 325MG TABLET PO SCH ×5 (08:10→16:58)
[2022-10-14 08:26] LABS: CHLORIDE 104 mEq/L (98-107)
[2022-10-14] MEDS: CLOPIDOGREL 75MG TABLET PO SCH (09:03)
[2022-10-14] MEDS: HEPARIN 5000 UNITS/ML VIAL SUBCUT SCH ×2 (09:04→21:36)
[2022-10-14] MEDS: BUDESONIDE 0.5MG/2ML NEB HHN SCH (10:13)
[2022-10-14 12:00] VITALS: BP 134/69
[2022-10-14] MEDS: FUROSEMIDE 40MG/4ML VIAL IVP SCH (12:33)
[2022-10-14] MEDS: POTASSIUM CHLORIDE 20MEQ TABLET SR PO SCH (12:33)
[2022-10-14 16:00] VITALS: BP 122/66
[2022-10-14 20:00] VITALS: BP 145/70
[2022-10-14] MEDS: ATORVASTATIN CALCIUM 20MG TABLET PO SCH (21:35)
[2022-10-14 22:25] LABS: PLATELET ESTIMATE NORMAL
[2022-10-15] VITALS: BP 153/67
[2022-10-15] MEDS: IPRATROPIUM BROMIDE (0.02%) 0.5MG/2.5ML NEB HHN SCH ×2 (02:00→10:39)
[2022-10-15] MEDS: ALBUTEROL (0.083%) 2.5MG/3ML NEB HHN SCH ×2 (02:01→10:39)
[2022-10-15 04:00] VITALS: BP 141/70
[2022-10-15] MEDS: SILDENAFIL CITRATE 20MG TABLET PO SCH ×3 (06:18→21:08)
[2022-10-15 07:16] LABS: BASOPHILS % 0.7 % (0.0-2.0); EOSINOPHILS % 6.8 % (0.0-5.0); HEMATOCRIT. 38.4 % (36.0-48.0); HEMOGLOBIN. 12.3 g/dL (12.0-16.0); LYMPHOCYTES % 21.3 % (20.0-50.0); MEAN CORPUSCULAR HEMOGLOBIN 26.7 pg (28.0-32.0); MEAN CORPUSCULAR VOLUME 83.4 fL (81.0-99.0); MEAN PLATELET VOLUME 9.3 fl (7.4-10.4); MONOCYTES % 13.6 % (2.0-8.0); NEUTROPHILS % 57.6 % (40.0-76.0); PLATELET 130 x1000/uL (130-400)
[2022-10-15 07:33] LABS: CHLORIDE 103 mEq/L (98-107)
[2022-10-15 08:00] VITALS: BP 144/59
[2022-10-15] MEDS: FERROUS SULFATE 325MG TABLET PO SCH ×3 (08:59→18:31)
[2022-10-15] MEDS: POTASSIUM CHLORIDE 20MEQ TABLET SR PO SCH (09:03)
[2022-10-15] MEDS: CLOPIDOGREL 75MG TABLET PO SCH (09:03)
[2022-10-15] MEDS: CIPROFLOXACIN 0.3% OPHTH SOLN 2.5ML RIGHTEYE SCH ×4 (09:04→21:08)
[2022-10-15] MEDS: FUROSEMIDE 40MG/4ML VIAL IVP SCH (09:06)
[2022-10-15] MEDS: HEPARIN 5000 UNITS/ML VIAL SUBCUT SCH ×2 (09:07→21:08)
[2022-10-15] MEDS ORDERED: POTASSIUM CHLORIDE 20MEQ TABLET SR PO NR (09:30)
[2022-10-15 12:00] VITALS: BP 13/68
[2022-10-15 16:00] VITALS: BP 140/71
[2022-10-15] MEDS: ACETAMINOPHEN 650MG/20.3ML UDC PO PRN (18:32)
[2022-10-15 20:27] VITALS: BP 133/67
[2022-10-15] MEDS: ATORVASTATIN CALCIUM 20MG TABLET PO SCH (21:08)
[2022-10-16 00:26] VITALS: BP 121/65
[2022-10-16 04:00] VITALS: BP 145/77
[2022-10-16] MEDS: SILDENAFIL CITRATE 20MG TABLET PO SCH ×3 (05:29→21:12)
[2022-10-16 07:39] LABS: BASOPHILS % 0.6 % (0.0-2.0); EOSINOPHILS % 9.3 % (0.0-5.0); HEMATOCRIT. 39.3 % (36.0-48.0); HEMOGLOBIN. 12.4 g/dL (12.0-16.0); LYMPHOCYTES % 26.7 % (20.0-50.0); MEAN CORPUSCULAR HEMOGLOBIN 26.5 pg (28.0-32.0); MEAN CORPUSCULAR VOLUME 83.9 fL (81.0-99.0); MEAN PLATELET VOLUME 8.9 fl (7.4-10.4); NEUTROPHILS % 50.4 % (40.0-76.0); PLATELET 137 x1000/uL (130-400); RED BLOOD CELL COUNT 4.69 mill/uL (4.2-5.4); RED CELL DISTRIBUTION WIDTH 17.9 % (11.6-14.6)
[2022-10-16 07:44] LABS: CHLORIDE 98 mEq/L (98-107)
[2022-10-16 08:00] VITALS: BP 129/66
[2022-10-16] MEDS: POTASSIUM CHLORIDE 20MEQ TABLET SR PO SCH (09:20)
[2022-10-16] MEDS: FUROSEMIDE 40MG/4ML VIAL IVP SCH (09:20)
[2022-10-16] MEDS: CLOPIDOGREL 75MG TABLET PO SCH (09:20)
[2022-10-16] MEDS: FERROUS SULFATE 325MG TABLET PO SCH ×3 (09:20→18:10)
[2022-10-16] MEDS: CIPROFLOXACIN 0.3% OPHTH SOLN 2.5ML RIGHTEYE SCH ×4 (09:21→21:12)
[2022-10-16] MEDS: HEPARIN 5000 UNITS/ML VIAL SUBCUT SCH ×2 (09:21→21:12)
[2022-10-16 12:00] VITALS: BP 130/73
[2022-10-16] MEDS: ACETAMINOPHEN 650MG/20.3ML UDC PO PRN (12:05)
[2022-10-16 16:00] VITALS: BP 121/58
[2022-10-16 20:00] VITALS: BP 147/79
[2022-10-16] MEDS: ATORVASTATIN CALCIUM 20MG TABLET PO SCH (21:12)
[2022-10-17] VITALS: BP 138/66
[2022-10-17 04:00] VITALS: BP 129/64
[2022-10-17] MEDS: SILDENAFIL CITRATE 20MG TABLET PO SCH (05:11)
[2022-10-17 08:00] VITALS: BP 120/58
[2022-10-17] MEDS: CIPROFLOXACIN 0.3% OPHTH SOLN 2.5ML RIGHTEYE SCH (09:49)
[2022-10-17] MEDS: FUROSEMIDE 40MG/4ML VIAL IVP SCH (09:49)
[2022-10-17] MEDS: CLOPIDOGREL 75MG TABLET PO SCH (09:49)
[2022-10-17] MEDS: POTASSIUM CHLORIDE 20MEQ TABLET SR PO SCH (09:49)
[2022-10-17] MEDS: HEPARIN 5000 UNITS/ML VIAL SUBCUT SCH (09:50)
[2022-10-17] MEDS: FERROUS SULFATE 325MG TABLET PO SCH (09:50)
[2022-10-17 12:00] VITALS: BP 151/86
[2022-10-17 13:44] VITALS: BP 151/86
== END 2022-10-17 15:30 | DRG 133 ==
LOC: ER 13:38 → 7WST 14:37 → EDBEDREQ 14:47 → EDBEDREQTM 14:47
PROVIDERS: ADMIT Internal Medicine; ATTEND Internal Medicine
PROC: 5A09357 Assistance with Respiratory Ventilation, Less than 24 Consecutive Hours, Continuous Positive Airway Pressure (ICD-10-PCS; principal; 2022-10-11)
PROC: 5A09357 Assistance with Respiratory Ventilation, Less than 24 Consecutive Hours, Continuous Positive Airway Pressure (ICD-10-PCS; 2022-10-12)
DX: J96.22 Acute and chronic respiratory failure with hypercapnia (principal); N17.0 Acute kidney failure with tubular necrosis; G93.41 Metabolic encephalopathy; I50.43 Acute on chronic combined systolic (congestive) and diastolic (congestive) heart failure; D69.6 Thrombocytopenia, unspecified; I27.29 Other secondary pulmonary hypertension; I27.81 Cor pulmonale (chronic); I95.9 Hypotension, unspecified; I11.0 Hypertensive heart disease with heart failure; E66.2 Morbid (severe) obesity with alveolar hypoventilation; Z20.822 Contact with and (suspected) exposure to COVID-19; J44.1 Chronic obstructive pulmonary disease with (acute) exacerbation; J44.0 Chronic obstructive pulmonary disease with (acute) lower respiratory infection; I07.1 Rheumatic tricuspid insufficiency; B37.9 Candidiasis, unspecified; E78.5 Hyperlipidemia, unspecified; Z68.42 Body mass index [BMI] 45.0-49.9, adult; Z99.81 Dependence on supplemental oxygen; Z79.899 Other long term (current) drug therapy
CPT/HCPCS: 36415; 36600; 71045; 80048; 80053; 80061; 80305; 81003; 82375; 82550; 82553; 82805; 83735; 83880; 84145; 84484; 85025; 85651; 87106; 87426; 90686; 90732; 93005; 93306; 93970; 94640; 94660; 97116; 97162; 97530; 99285; A6261; C1893; J1644; J1940; J3490; J7626